=== PATIENT | female | born 1970 | race Caucasian/White ===

== ENCOUNTER 2016-04-01 08:48 | Inpatient (IN) | payer SELFPAY ==
[~2016-04-01] VITALS: Ht 172.7 cm; Wt 168.5 kg
[2016-04-01] MEDS ORDERED: ADENOSINE 6 MG/2 ML VIAL IV ONE ×2 (08:54→10:00)
[2016-04-01] MEDS ORDERED: DILTIAZEM IV PUSH 25 MG/5 ML VIAL. ONE (08:54)
[2016-04-01 09:15] LABS: BASO # 0.1 x10^3/uL (0.0-0.2); BASO % 1 % (0-3); EOS % 1 % (0-3); HEMOGLOBIN 15.8 g/dL (12.0-15.5); LYMPH # 4.1 x10^3/uL (1.0-4.8); LYMPH % 31 % (24-48); MEAN CORPUSCULAR HEMOGLOBIN 33 pg (25-35); MEAN CORPUSCULAR HGB CONC 33 g/dL (31-37); MEAN CORPUSCULAR VOLUME 99 fL (79-100); MONO % 7 % (0-9); NEUT % 60 % (31-73); PLATELET COUNT 207 x10^3/uL (140-400); RED BLOOD COUNT 4.87 x10^6/uL (3.50-5.40); RED CELL DISTRIBUTION WIDTH 13.5 % (11.5-14.5); WHITE BLOOD COUNT 13.1 x10^3/uL (4.0-11.0)
--- NOTE | 2016-04-01 09:15 | PHYS DOC ---
Past Medical History Past Medical History: Hypothyroid, Migraines Past Surgical History: Appendectomy, Alcohol Use: Occasionally Drug Use: None Adult General Chief Complaint Chief Complaint: Palpitations HPI HPI Patient is a 46 year old female who presents with palpitations and dizziness. She states around 7 AM this morning she started feeling lightheaded and her heart racing. She states she felt a little short of breath. She denies any nausea vomiting chest pain. She denies any history of SVT in the past. She denies any alcohol or drug abuse. Currently is on no medications. She did have one sweet tea drink this morning. She states she's never been worked up for any kind of coronary disease. She does have family history of her mom had a heart attack in her 50s. She denies any history of smoking. Review of Systems Review of Systems Constitutional: Denies fever or chills [] Eyes: Denies change in visual acuity, redness, or eye pain [] HENT: Denies nasal congestion or sore throat [] Respiratory: Denies cough or shortness of breath [] Cardiovascular: No additional information not addressed in HPI [] GI: Denies abdominal pain, nausea, vomiting, bloody stools or diarrhea [] : Denies dysuria or hematuria [] Musculoskeletal: Denies back pain or joint pain [] Integument: Denies rash or skin lesions [] Neurologic: Denies headache, focal weakness or sensory changes [] Endocrine: Denies polyuria or polydipsia [] Current Medications Current Medications Current Medications Medications (Trade) Dose Ordered Sig/Stormy Start Time Stop Time Status Last Admin Dose Admin Adenosine (Adenocard) 6 mg 1X ONCE 04/01/16 10:00 04/01/16 10:01 DC 04/01/16 09:01 6 MG Diltiazem HCl 25 mg 25 mg STK-MED ONCE 04/01/16 08:54 04/01/16 08:55 DC Sodium Chloride (Iv Sodium Chloride 0.9% 1000ml Bag) 1,000 ml @ 1,000 mls/hr Q1H 04/01/16 09:30 04/01/16 10:29 DC 04/01/16 09:00 1,000 MLS/HR Allergies Allergies Allergies Coded Allergies Type Severity Reaction Last Updated Verified No Known Drug Allergies 01/10/15 No Physical Exam Physical Exam Constitutional: Well developed, well nourished, no acute distress, non-toxic appearance. [] HENT: Normocephalic, atraumatic, bilateral external ears normal, oropharynx moist, no oral exudates, nose normal. [] Eyes: PERRLA, EOMI, conjunctiva normal, no discharge. [] Neck: Normal range of motion, no tenderness, supple, no stridor. [] Cardiovascular: Heart rate tach cardiac with regular rhythm, no murmurs appreciated [] Lungs & Thorax: Bilateral breath sounds clear to auscultation [] Abdomen: Bowel sounds normal, soft, no tenderness, no masses, no pulsatile masses. [] Skin: Warm, dry, no erythema, no rash. [] Back: No tenderness, no CVA tenderness. [] Extremities: No tenderness, no cyanosis, no clubbing, ROM intact, no edema. [] Neurologic: Alert and oriented X 3, normal motor function, normal sensory function, no focal deficits noted. [] Psychologic: Affect normal, judgement normal, mood normal. [] Current Patient Data Vital Signs Vital Signs Date Time Temp Pulse Resp B/P Pulse Ox O2 Delivery O2 Flow Rate FiO2 04/01/16 10:00 108 29 120/59 92 Nasal Cannula 2 04/01/16 08:50 98.7 98.7 Lab Values Laboratory Tests Test 04/01/16 08:50 04/01/16 09:43 White Blood Count 13.1x10^3/uL (4.0-11.0) H Red Blood Count 4.87x10^6/uL (3.50-5.40) Hemoglobin 15.8g/dL (12.0-15.5) H Hematocrit 48.0% (36.0-47.0) H Mean Corpuscular Volume 99fL (79-100) Mean Corpuscular Hemoglobin 33pg (25-35) Mean Corpuscular Hemoglobin Concent 33g/dL (31-37) Red Cell Distribution Width 13.5% (11.5-14.5) Platelet Count 207x10^3/uL (140-400) Neutrophils (%) (Auto) 60% (31-73) Lymphocytes (%) (Auto) 31% (24-48) Monocytes (%) (Auto) 7% (0-9) Eosinophils (%) (Auto) 1% (0-3) Basophils (%) (Auto) 1% (0-3) Neutrophils # (Auto) 7.9x10^3uL (1.8-7.7) H Lymphocytes # (Auto) 4.1x10^3/uL (1.0-4.8) Monocytes # (Auto) 0.9x10^3/uL (0.0-1.1) Eosinophils # (Auto) 0.2x10^3/uL (0.0-0.7) Basophils # (Auto) 0.1x10^3/uL (0.0-0.2) Prothrombin Time 12.6SEC (11.7-14.0) Prothrombin Time INR 1.0 (0.8-1.1) Magnesium Level 1.9mg/dL (1.8-2.4) Creatine Kinase 84U/L (26-192) Creatine Kinase MB (Mass) < 0.5ng/mL (0.0-3.6) Creatine Kinase MB Relative Index % (0-4) Troponin I Quantitative < 0.017ng/mL (0.000-0.055) YE-Tsx-L-Type Natriuretic Peptide 35pg/mL (0-124) Thyroid Stimulating Hormone (TSH) 113.955uIU/mL (0.358-3.74) H Sodium Level 136mmol/L (136-145) Potassium Level 4.0mmol/L (3.5-5.1) Chloride Level 103mmol/L (98-107) Carbon Dioxide Level 22mmol/L (21-32) Anion Gap 11 (6-14) Blood Urea Nitrogen 9mg/dL (7-20) Creatinine 1.0mg/dL (0.6-1.0) Estimated GFR (Cockcroft-Gault) 59.4 Glucose Level 338mg/dL (70-99) H Calcium Level 8.2mg/dL (8.5-10.1) L Total Bilirubin 0.4mg/dL (0.2-1.0) Direct Bilirubin 0.1mg/dL (0.0-0.2) Aspartate Amino Transferase (AST) 68U/L (15-37) H Alanine Aminotransferase (ALT) 71U/L (14-59) H Alkaline Phosphatase 72U/L (46-116) Total Protein 7.5g/dL (6.4-8.2) Albumin 3.2g/dL (3.4-5.0) L Laboratory Tests 04/01/16 08:50 Laboratory Tests 04/01/16 09:43 EKG EKG EKG shows SVT with a rate of 160, no ST elevations or T-wave inversions appreciated, normal axis, QTc 459 , as interpreted by me. Repeat EKG after adenosine given showed sinus tachycardia with a rate of 134, no ST elevations or T-wave inversions appreciated, normal axis, QTc 430 , as interpreted by me. Radiology/Procedures Radiology/Procedures [facility] [address] [place] [address] IMAGING REPORT Signed PATIENT: ERI NOLAN ACCOUNT: [id number] : 1970 LOCATION: [address] [place] [address] AGE: 46 SEX: F EXAM STATUS: ADM IN ORD. PHYSICIAN: HENRIQUE CLIFFORD MD REASON: soa ER1 PROCEDURE: PORTABLE CHEST 1V Indication: Tachycardia Technique: Upright portable chest radiograph was obtained. Image was repeated. Comparison is from March 21, 2011. Findings: The lungs are clear. The cardiopulmonary silhouette is within normal limits. The bony structures are intact. Leads overlie the patient. Impression: No active pulmonary disease. DICTATED and SIGNED BY: EARL ORTIZ MD DATE: 04/01/16 1227 CC: HENRIQUE CLIFFORD MD; NO PCP ~ Impressions: SVT Elevated TSH Obesity Course & Med Decision Making Course & Med Decision Making Pertinent Labs and Imaging studies reviewed. (See chart for details) 45 minutes critical care time was used on this patient excluding procedures. She presented with SVT and 6 mg of adenosine was given which brought her back into a sinus tachycardia. Cardiology's been consulted. We'll admit to the hospitalist. She is in stable condition at this time. She has have an elevated TSH of which she states hypothyroidism runs in her family. Spoke with regarding the patient and admission. Dragon Disclaimer Dragon Disclaimer This electronic medical record was generated, in whole or in part, using a voice recognition dictation system. Departure Departure Impression: Primary Impression: SVT (supraventricular tachycardia) Disposition: ADMITTED INPATIENT Admitting Physician: Luz Marina Kim Condition: STABLE Referrals: MARIA ISABEL MONTES MD (PCP) HENRIQUE CLIFFORD MD Apr 01, 2016 09:15
[2016-04-01 09:27] LABS: PROTHROMBIN TIME PATIENT 12.6 SEC (11.7-14.0)
[2016-04-01] MEDS ORDERED: IV NORMAL SALINE 1000ML BAG 1,000 ML IV SCH (09:30)
--- NOTE | 2016-04-01 09:34 | ACF ---
Admission Forms Criteria SUPRAVENTRICULAR ARRHYTHMIAS Clinical Indications for Admission to Inpatient Care (Place 'X' for any and all applicable criteria): Admission is indicated by ANY ONE of the following (1)(2): [X]I. Arrhythmia causing significant symptoms or findings as indicated by ANY ONE of the following: [ ]a) Chest pain [ ]b) Myocardial ischemia [ ]c) Altered mental status [X]d) Dizziness, weakness, or light-headedness [ ]e) Dyspnea or hypoxemia [ ]f) Heart failure (eg, pulmonary edema)(11) [ ]II. Initiation of antiarrhythmic drug therapy is needed in patient at high risk of adverse events as indicated by ANY ONE of the following: [ ]a) Significant structural heart disease (eg, aortic stenosis, reduced ejection fraction, cardiomyopathy, congenital heart disease) [ ]b) Underlying sinus node or atrioventricular conduction disturbances [ ]c) Prolonged QT interval [ ]d) Need for treatment with antiarrhythmic that have significant proarrhythmic potential ( procainamide) [ ]e) Patient whose sinus rhythm has not been observed on ECG [ ]III. Inpatient admission required rather than observation care because of ANY ONE of the following: [ ]a) Syncope [ ]b) Patient has automatic implanted cardioverter-defibrillator that is repeatedly firing, malfunctioning, or in need of immediate adjustment of settings beyond scope of ambulatory or observation care. [ ]c) Hemodynamic instability that is severe or persistent [ ]d) Unstable cardiac conduction defects indicated by ANY ONE of the following(19)(20)(21): [ ]a) Type II second-degree atrioventricular block [ ]b) Third-degree atrioventricular block [ ]C) New-onset left bundle branch block with suspected myocardial ischemia [ ]e) Severe electrolyte abnormalities requiring inpatient care [ ]f) Continuous intravenous infusion of anticoagulation, platelet inhibitor, vasoactive, or antiarrhythmic medication(14) [ ]g) Pulmonary artery catheter monitoring [ ]h) Repeat cardioversion necessary [ ]i) Other condition, treatment or monitoring requiring inpatient admission [ ]IV. Underlying medical condition that necessitates inpatient care (eg, thyrotoxicosis, severe acidosis) Extended stay beyond goal length of stay may be needed for(1)(17)(18): [ ]a) Persistent hemodynamic instability or continued severe arrhythmia [ ]b) Continued monitoring during initiation of certain medications (eg, some antiarrhythmics)(17)(19) [ ]c) Precipitating cause requires ongoing inpatient care (eg, severe electrolyte abnormality, systemic infection, acidosis) [ ]d) Unstable comorbidities The original [facility] content created by [facility] has been revised. The portions of the content which have been revised are identified through the use of italic text or in bold, and [facility] has neither reviewed nor approved the modified material. All other unmodified content is copyright [facility]. Please see references footnoted in the original [facility] edition 2016 Admission Criteria Met?: Yes CHIQUIS CRAFT Apr 01, 2016 09:34
[2016-04-01 09:47] LABS: CKMB MASS < 0.5 ng/mL (0.0-3.6); CREATINE KINASE 84 U/L (26-192)
[2016-04-01 09:54] LABS: CALCIUM 8.2 mg/dL (8.5-10.1); GFR 59.4
[2016-04-01 09:59] LABS: ALBUMIN 3.2 g/dL (3.4-5.0); DIRECT BILIRUBIN 0.1 mg/dL (0.0-0.2); TOTAL BILIRUBIN 0.4 mg/dL (0.2-1.0); TOTAL PROTEIN 7.5 g/dL (6.4-8.2)
--- NOTE | 2016-04-01 11:16 | EKG ---
[facility] [address] [place] [address] Test Date: 2016-04-01 Test Time: 08:58:37 Pat Name: ERI NOLAN Department: Room: Gender: F Dog [employer]: : 1970 Requested By: HENRIQUE CLIFFORD Order Number: [id number] Reading MD: Measurements Intervals [place] Rate: 134 P: 2 SD: 144 QRS: 33 QRSD: 78 T: 64 QT: 288 QTc: 430 Interpretive Statements SINUS TACHYCARDIA LOW LIMB LEAD VOLTAGE QRS(T) CONTOUR ABNORMALITY CONSISTENT WITH ANTEROSEPTAL INFARCT PROBABLY OLD RI6.01 Unconfirmed report No previous ECG available for comparison
[2016-04-01 11:25] VITALS: BP 112/80
--- NOTE | 2016-04-01 12:32 | RAD ---
Indication: Tachycardia Technique: Upright portable chest radiograph was obtained. Image was repeated. Comparison is from March 21, 2011. Findings: The lungs are clear. The cardiopulmonary silhouette is within normal limits. The bony structures are intact. Leads overlie the patient. Impression: No active pulmonary disease.
--- NOTE | 2016-04-01 12:54 | PDOC2 ---
CARDIAC CONSULT DATE OF CONSULT Date of Consult DATE: 04/01/16 TIME: 12:41 REASON FOR CONSULT Reason for Consult: SVT REFERRING PHYSICIAN Referring Physician: Dr. Mehta SOURCE Source: Chart review, Patient HISTORY OF PRESENT ILLNESS HISTORY OF PRESENT ILLNESS This is a 46 yo female who presented with complaints of rapid heart rate. Patient reports she woke this morning feeling well and went to work as usual. While at work, felt like heart was "racing." Works as a nurse at [employer]. Patient checked her heart rate and was noted in 160's. Reports palpitations worsened and started feeling dizzy "foggy" and became diaphoretic. Check HR again and was in the 170's so she came for further evaluation. Took ASA prior to arrival. In ED, was noted to be in SVT. Was converted with adenosine x1. No prior hx of cardiac disease. PAST MEDICAL HISTORY Cardiovascular: No pertinent hx Pulmonary: No pertinent hx CENTRAL NERVOUS SYSTEM: Other (benign essential tremor) GI: No pertinent hx Heme/Onc: No pertinent hx Hepatobiliary: No pertinent hx Psych: No pertinent hx Rheumatologic: No pertinent hx Infectious disease: No pertinent hx ENT: No pertinent hx Renal/: No pertinent hx Endocrine: Other (obesity ) Dermatology: No pertinent hx PAST SURGICAL HISTORY Past Surgical History: No pertinent history FAMILY HISTORY Family History: Heart Disease, Hypertension SOCIAL HISTORY Smoke: No ALCOHOL: none Drugs: None Lives: with Family CURRENT MEDICATIONS CURRENT MEDICATIONS Current Medications Medications (Trade) Dose Ordered Sig/Stormy Route PRN Reason Start Time Stop Time Status Last Admin Dose Admin Sodium Chloride (Iv Sodium Chloride 0.9% 1000ml Bag) 1,000 ml @ 1,000 mls/hr Q1H IV 04/01/16 09:30 04/01/16 10:29 DC 04/01/16 09:00 Adenosine (Adenocard) 6 mg 1X ONCE IV 04/01/16 10:00 04/01/16 10:01 DC 04/01/16 09:01 ALLERGIES ALLERGIES: Coded Allergies: No Known Drug Allergies (Unverified , 01/10/15) ROS Review of System 14 point ROS conducted with pertinent positives noted above in HPI. PHYSICAL EXAM General: Alert, Oriented X3, Cooperative, No acute distress HEENT: Atraumatic, Mucous membr. moist/pink Lungs: Clear to auscultation, Normal air movement Heart: Regular rate, Normal S1, Normal S2, No murmurs Abdomen: Soft, No tenderness, Other (obese ) Extremities: No edema, Normal pulses Skin: No breakdown, No significant lesion Neuro: Normal speech, Strength at 5/5 X4 ext, Sensation intact Psych/Mental Status: Mental status NL, Mood NL MUSCULOSKELETAL: Full range of motion without pain VITALS VITALS Vital Signs Date Time Temp Pulse Resp B/P Pulse Ox O2 Delivery O2 Flow Rate FiO2 04/01/16 11:25 97.6 97 18 112/80 95 Room Air 97.6 04/01/16 11:00 2 LABS Lab: Laboratory Tests Test 04/01/16 08:50 04/01/16 09:43 04/01/16 12:05 White Blood Count 13.1x10^3/uL (4.0-11.0) Red Blood Count 4.87x10^6/uL (3.50-5.40) Hemoglobin 15.8g/dL (12.0-15.5) Hematocrit 48.0% (36.0-47.0) Mean Corpuscular Volume 99fL (79-100) Mean Corpuscular Hemoglobin 33pg (25-35) Mean Corpuscular Hemoglobin Concent 33g/dL (31-37) Red Cell Distribution Width 13.5% (11.5-14.5) Platelet Count 207x10^3/uL (140-400) Neutrophils (%) (Auto) 60% (31-73) Lymphocytes (%) (Auto) 31% (24-48) Monocytes (%) (Auto) 7% (0-9) Eosinophils (%) (Auto) 1% (0-3) Basophils (%) (Auto) 1% (0-3) Neutrophils # (Auto) 7.9x10^3uL (1.8-7.7) Lymphocytes # (Auto) 4.1x10^3/uL (1.0-4.8) Monocytes # (Auto) 0.9x10^3/uL (0.0-1.1) Eosinophils # (Auto) 0.2x10^3/uL (0.0-0.7) Basophils # (Auto) 0.1x10^3/uL (0.0-0.2) Prothrombin Time 12.6SEC (11.7-14.0) Prothromb Time International Ratio 1.0 (0.8-1.1) Magnesium Level 1.9mg/dL (1.8-2.4) Creatine Kinase 84U/L (26-192) Creatine Kinase MB (Mass) < 0.5ng/mL (0.0-3.6) Creatine Kinase MB Relative Index % (0-4) Troponin I Quantitative < 0.017ng/mL (0.000-0.055) RA-Bts-S-Type Natriuretic Peptide 35pg/mL (0-124) Thyroid Stimulating Hormone (TSH) 113.955uIU/mL (0.358-3.74) Sodium Level 136mmol/L (136-145) Potassium Level 4.0mmol/L (3.5-5.1) Chloride Level 103mmol/L (98-107) Carbon Dioxide Level 22mmol/L (21-32) Anion Gap 11 (6-14) Blood Urea Nitrogen 9mg/dL (7-20) Creatinine 1.0mg/dL (0.6-1.0) Estimated GFR (Cockcroft-Gault) 59.4 Glucose Level 338mg/dL (70-99) Calcium Level 8.2mg/dL (8.5-10.1) Total Bilirubin 0.4mg/dL (0.2-1.0) Direct Bilirubin 0.1mg/dL (0.0-0.2) Aspartate Amino Transf (AST/SGOT) 68U/L (15-37) Alanine Aminotransferase (ALT/SGPT) 71U/L (14-59) Alkaline Phosphatase 72U/L (46-116) Total Protein 7.5g/dL (6.4-8.2) Albumin 3.2g/dL (3.4-5.0) Glucose (Fingerstick) 238mg/dL (70-99) ASSESSMENT/PLAN ASSESSMENT/PLAN 1. SVT converted in ED with adenosine maintaining SR check echo to assess LV function/presence of cardiac anomalies. tx underlying thyroid dx if paroxysmal episodes occur once thyroid has been replaced, will start BB for rate control If echo WNL, may dicharge and f/u in our office with Dr. Rushing in 2 weeks 2. Hypothyroidism TSH 113 likely contributor to SVT replacement per PCP 3. Morbid obesity encouraged lifestyle modification 4. Undiagnosed Diabetes glucose 338 upon admit per PCP Problems: IVELISSE LOMBARDI APRN Apr 01, 2016 12:54
[2016-04-01] MEDS ORDERED: ONDANSETRON PF 4 MG/2 ML VIAL. IV PRN (13:00)
[2016-04-01] MEDS ORDERED: DEXTROSE 50% 25 GM / 50ML DISP.SYRIN. IV PRN (13:00)
[2016-04-01] MEDS ORDERED: ACETAMINOPHEN 325 MG TABLET. PO PRN (13:00)
--- NOTE | 2016-04-01 13:43 | PDOC1 ---
History and Physical Date of Admission Date of Admission 04/01/16 Identification/Chief Complaint Chief Complaint tachycardia Problems: Source Source: Chart review, Patient History of Present Illness History of Present Illness HPI HPI Patient is a 46 year old female who presents with palpitations and dizziness. no PMH, refused to see dr. Quick now. 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 She denies any alcohol or drug abuse. Currently is on no medications. She did have one sweet tea drink this morning. She states she's never been worked up for any kind of coronary disease. She does have family history of her mom had a heart attack in her 50s. She denies any history of smoking. father has hypothyroidism. TSH was found 113 in ER. She has dry skin, but denies constipation, feeling cold. Does have irregular menstrual period. as per ERP, pt was found SVT, EKG here showed sinus tachycardia at 130s. Past Medical History Cardiovascular: No pertinent hx Pulmonary: No pertinent hx CENTRAL NERVOUS SYSTEM: Other (benign essential tremor) GI: No pertinent hx Heme/Onc: No pertinent hx Hepatobiliary: No pertinent hx Psych: No pertinent hx Rheumatologic: No pertinent hx Infectious disease: No pertinent hx ENT: No pertinent hx Renal/: No pertinent hx Endocrine: Other (obesity ) Dermatology: No pertinent hx Past Surgical History Past Surgical History: Appendectomy, Family History Family History hypothyroidism Family History: Heart Disease, Hypertension Social History Smoke: No ALCOHOL: social Drugs: None Current Problem List Problem List Problems Medical Problems: (1) SVT (supraventricular tachycardia) Status: Acute Current Medications Current Medications Current Medications Medications (Trade) Dose Ordered Sig/Stormy Start Time Stop Time Status Last Admin Dose Admin Acetaminophen (Tylenol) 650 mg PRN Q6HRS PRN 04/01/16 13:00 Adenosine (Adenocard) 6 mg 1X ONCE 04/01/16 10:00 04/01/16 10:01 DC 04/01/16 09:01 6 MG Dextrose 12.5 gm PRN Q15MIN PRN 04/01/16 13:00 Diltiazem HCl 25 mg 25 mg STK-MED ONCE 04/01/16 08:54 04/01/16 08:55 DC Enoxaparin Sodium (Lovenox 60mg Syringe) 60 mg Q12HR 04/01/16 14:00 Insulin Aspart (Novolog) 0-9 UNITS TIDWMEALS 04/01/16 17:00 Ondansetron HCl (Zofran) 4 mg PRN Q6HRS PRN 04/01/16 13:00 Sodium Chloride (Iv Sodium Chloride 0.9% 1000ml Bag) 1,000 ml @ 1,000 mls/hr Q1H 04/01/16 09:30 04/01/16 10:29 DC 04/01/16 09:00 1,000 MLS/HR Allergies Allergies Allergies Coded Allergies Type Severity Reaction Last Updated Verified No Known Drug Allergies 01/10/15 No ROS Review of System CONSTITUTIONAL: No fever or chills EYES: No recent changes SKIN: No rash or itching CARDIOVASCULAR: No chest pain, syncope, palpitations, or edema RESPIRATORY: No SOB or cough GASTROINTESTINAL: No nausea, vomiting or abdominal pain NEUROLOGICAL: No headaches or weakness ENDOCRINE: No cold or heat intolerance GENITOURINARY: No urgency or frequency of urination MUSCULOSKELETAL: No back pain or joint pain LYMPHATICS: No enlarged lymph nodes PSYCHIATRIC: No anxiety or depression Physical Exam Physical Exam GEN.: No apparent distress. Alert and oriented. HEENT: Head is normocephalic, atraumatic NECK: Supple. LUNGS: Clear to auscultation. HEART: RRR, S1, S2 present. Peripheral pulses intact. tachycardia. ABDOMEN: Soft, nontender. Positive bowel sounds. EXTREMITIES: Without any cyanosis. NEUROLOGIC: Normal speech, normal tone PSYCHIATRIC: Normal affect, normal mood. SKIN: No ulcerations Vitals Vitals Vital Signs Date Time Temp Pulse Resp B/P Pulse Ox O2 Delivery O2 Flow Rate FiO2 04/01/16 11:30 Room Air 04/01/16 11:25 97.6 97 18 112/80 95 97.6 04/01/16 11:00 2 Labs Labs Laboratory Tests Test 04/01/16 08:50 04/01/16 09:43 04/01/16 12:05 White Blood Count 13.1x10^3/uL (4.0-11.0) Red Blood Count 4.87x10^6/uL (3.50-5.40) Hemoglobin 15.8g/dL (12.0-15.5) Hematocrit 48.0% (36.0-47.0) Mean Corpuscular Volume 99fL (79-100) Mean Corpuscular Hemoglobin 33pg (25-35) Mean Corpuscular Hemoglobin Concent 33g/dL (31-37) Red Cell Distribution Width 13.5% (11.5-14.5) Platelet Count 207x10^3/uL (140-400) Neutrophils (%) (Auto) 60% (31-73) Lymphocytes (%) (Auto) 31% (24-48) Monocytes (%) (Auto) 7% (0-9) Eosinophils (%) (Auto) 1% (0-3) Basophils (%) (Auto) 1% (0-3) Neutrophils # (Auto) 7.9x10^3uL (1.8-7.7) Lymphocytes # (Auto) 4.1x10^3/uL (1.0-4.8) Monocytes # (Auto) 0.9x10^3/uL (0.0-1.1) Eosinophils # (Auto) 0.2x10^3/uL (0.0-0.7) Basophils # (Auto) 0.1x10^3/uL (0.0-0.2) Prothrombin Time 12.6SEC (11.7-14.0) Prothromb Time International Ratio 1.0 (0.8-1.1) Magnesium Level 1.9mg/dL (1.8-2.4) Creatine Kinase 84U/L (26-192) Creatine Kinase MB (Mass) < 0.5ng/mL (0.0-3.6) Creatine Kinase MB Relative Index % (0-4) Troponin I Quantitative < 0.017ng/mL (0.000-0.055) ZS-Wiv-G-Type Natriuretic Peptide 35pg/mL (0-124) Thyroid Stimulating Hormone (TSH) 113.955uIU/mL (0.358-3.74) Sodium Level 136mmol/L (136-145) Potassium Level 4.0mmol/L (3.5-5.1) Chloride Level 103mmol/L (98-107) Carbon Dioxide Level 22mmol/L (21-32) Anion Gap 11 (6-14) Blood Urea Nitrogen 9mg/dL (7-20) Creatinine 1.0mg/dL (0.6-1.0) Estimated GFR (Cockcroft-Gault) 59.4 Glucose Level 338mg/dL (70-99) Calcium Level 8.2mg/dL (8.5-10.1) Total Bilirubin 0.4mg/dL (0.2-1.0) Direct Bilirubin 0.1mg/dL (0.0-0.2) Aspartate Amino Transf (AST/SGOT) 68U/L (15-37) Alanine Aminotransferase (ALT/SGPT) 71U/L (14-59) Alkaline Phosphatase 72U/L (46-116) Total Protein 7.5g/dL (6.4-8.2) Albumin 3.2g/dL (3.4-5.0) Glucose (Fingerstick) 238mg/dL (70-99) Laboratory Tests Test 04/01/16 08:50 04/01/16 09:43 04/01/16 12:05 White Blood Count 13.1x10^3/uL (4.0-11.0) Red Blood Count 4.87x10^6/uL (3.50-5.40) Hemoglobin 15.8g/dL (12.0-15.5) Hematocrit 48.0% (36.0-47.0) Mean Corpuscular Volume 99fL (79-100) Mean Corpuscular Hemoglobin 33pg (25-35) Mean Corpuscular Hemoglobin Concent 33g/dL (31-37) Red Cell Distribution Width 13.5% (11.5-14.5) Platelet Count 207x10^3/uL (140-400) Neutrophils (%) (Auto) 60% (31-73) Lymphocytes (%) (Auto) 31% (24-48) Monocytes (%) (Auto) 7% (0-9) Eosinophils (%) (Auto) 1% (0-3) Basophils (%) (Auto) 1% (0-3) Neutrophils # (Auto) 7.9x10^3uL (1.8-7.7) Lymphocytes # (Auto) 4.1x10^3/uL (1.0-4.8) Monocytes # (Auto) 0.9x10^3/uL (0.0-1.1) Eosinophils # (Auto) 0.2x10^3/uL (0.0-0.7) Basophils # (Auto) 0.1x10^3/uL (0.0-0.2) Prothrombin Time 12.6SEC (11.7-14.0) Prothromb Time International Ratio 1.0 (0.8-1.1) Magnesium Level 1.9mg/dL (1.8-2.4) Creatine Kinase 84U/L (26-192) Creatine Kinase MB (Mass) < 0.5ng/mL (0.0-3.6) Creatine Kinase MB Relative Index % (0-4) Troponin I Quantitative < 0.017ng/mL (0.000-0.055) IS-Ppv-C-Type Natriuretic Peptide 35pg/mL (0-124) Thyroid Stimulating Hormone (TSH) 113.955uIU/mL (0.358-3.74) Sodium Level 136mmol/L (136-145) Potassium Level 4.0mmol/L (3.5-5.1) Chloride Level 103mmol/L (98-107) Carbon Dioxide Level 22mmol/L (21-32) Anion Gap 11 (6-14) Blood Urea Nitrogen 9mg/dL (7-20) Creatinine 1.0mg/dL (0.6-1.0) Estimated GFR (Cockcroft-Gault) 59.4 Glucose Level 338mg/dL (70-99) Calcium Level 8.2mg/dL (8.5-10.1) Total Bilirubin 0.4mg/dL (0.2-1.0) Direct Bilirubin 0.1mg/dL (0.0-0.2) Aspartate Amino Transf (AST/SGOT) 68U/L (15-37) Alanine Aminotransferase (ALT/SGPT) 71U/L (14-59) Alkaline Phosphatase 72U/L (46-116) Total Protein 7.5g/dL (6.4-8.2) Albumin 3.2g/dL (3.4-5.0) Glucose (Fingerstick) 238mg/dL (70-99) VTE Prophylaxis Ordered VTE Prophylaxis Devices: Yes VTE Pharmacological Prophylaxi: Yes Assessment/Plan Assessment/Plan 1. SVT converted to sinus tachycardia post adenosine 2. hypothyroidism 3. morbid obesity with BMI 54 4. h/o migraines 5. hyperglycemia, likely DM2 plan: 1. card consult 2. echo 3. beta ashley 4. add synthroid, pt is morbid obese, the initial synthroid dose would be very high, double checked with pharm, would start with 200mcg for now check hba1c, lipid panel. ssi dvt ppx check t4 DESTIN ASKEW MD Apr 01, 2016 13:43
[2016-04-01] MEDS: ENOXAPARIN ** NOTE DOSE ** SYRINGE SQ SCH ×2 (14:00→21:00)
[2016-04-01 15:00] VITALS: BP 116/73
[2016-04-01] MEDS: METOPROLOL TART IMMED RELEASE 25 MG TABLET PO SCH ×2 (15:33→21:45)
[2016-04-01] MEDS: LEVOTHYROXINE 100 MCG TABLET PO SCH (15:35)
--- NOTE | 2016-04-01 16:50 | CARD ---
APPROVED REPORT EXAM: Two-dimensional and M-mode echocardiogram with Doppler and color Doppler. Other Information Quality : Average Rhythm : NSR INDICATION Arrhythmia SVT 2D DIMENSIONS RVDd2.4 (2.9-3.5cm)Left Atrium(2D)4.1 (1.6-4.0cm) IVSd0.8 (0.7-1.1cm)Aortic Root(2D)2.9 (2.0-3.7cm) LVDd5.3 (3.9-5.9cm)LVOT Diameter2.2 (1.8-2.4cm) PWd0.8 (0.7-1.1cm)LVDs3.1 (2.5-4.0cm) FS (%) 32.8 %SV101.3 ml LVEF(%)63.5 (>50%) Aortic Valve AoV Peak Jorge.116.5cm/sAoV VTI19.0cm AO Peak GR.5.4mmHgLVOT Peak Jorge.94.1cm/s LVOT VTI 16.44cmAO Mean GR.3mmHg CARLINE (VMAX)2.26my0UCU (VTI)3.14cm2 Mitral Valve MV E Ahygvkzi12.0cm/sMV DECEL [id number] MV A Dgquoptd56.5cm/sMV E Mean Gr.1mmHg MV NVZ80kcF/A Ratio1.0 MV A Jfubfwwb06ckVAG (PHT)3.50cm2 TDI E/Lateral E'9.3E/Medial E'10.3 Pulmonary Valve PV Peak Lyimttao682.4cm/sPV Peak Grad.4mmHg RVOT VTI15.7cm Tricuspid Valve TR P. Jestwaze671be/sRAP LZHAROVA9dmIo TR Peak Gr.78huCiAFPP60vpHo LEFT VENTRICLE The left ventricle is normal size. There is normal left ventricular wall thickness. Left ventricle sy stolic function is normal. The Ejection Fraction is 60-65%. There is normal LV segmental wall motion. The left ventricular diastolic function and filling is normal for age. RIGHT VENTRICLE The right ventricle is normal size. The right ventricular systolic function is normal. ATRIA The left atrium size is normal. The right atrium size is normal. The interatrial septum is intact wit h no evidence for an atrial septal defect or patent foramen ovale as noted on 2-D or Doppler imaging. AORTIC VALVE The aortic valve is not well visualized. Doppler and Color Flow revealed no significant aortic regurg itation. There is no significant aortic valvular stenosis. MITRAL VALVE The mitral valve is normal in structure and function. There is no mitral valve stenosis. Doppler and Color Flow revealed no mitral valve regurgitation noted. TRICUSPID VALVE The tricuspid valve is normal in structure and function. Doppler and Color Flow revealed trace to mil d tricuspid regurgitation. The PA pressure was estimated at 27 mmHg. There is no tricuspid valve sten osis. PULMONIC VALVE The pulmonic valve is not well visualized. Doppler and Color Flow revealed no pulmonic valvular regur gitation. There is no pulmonic valvular stenosis. GREAT VESSELS The aortic root is normal in size. The IVC is normal in size and collapses >50% with inspiration. PERICARDIAL EFFUSION There is no evidence of significant pericardial effusion. Critical Notification Critical Value: No <Conclusion> Left ventricle systolic function is normal. The Ejection Fraction is 60-65%. There is normal LV segmental wall motion. Trace to mild tricuspid regurgitation. The PA pressure was estimated at 27 mmHg. There is no evidence of significant pericardial effusion.
[2016-04-01] MEDS: INSULIN ASPART 300 UNITS/3 ML INSULN.PEN SQ SCH (17:47)
[2016-04-01 19:47] VITALS: BP 98/58
[2016-04-01 21:45] VITALS: BP 119/64
[2016-04-01 23:11] VITALS: BP 85/51
[2016-04-02 03:13] VITALS: BP 97/70
[2016-04-02 05:58] LABS: BASO # 0.1 x10^3/uL (0.0-0.2); BASO % 1 % (0-3); EOS % 2 % (0-3); HEMATOCRIT 42.9 % (36.0-47.0); HEMOGLOBIN 14.3 g/dL (12.0-15.5); LYMPH # 2.6 x10^3/uL (1.0-4.8); LYMPH % 28 % (24-48); MEAN CORPUSCULAR HEMOGLOBIN 32 pg (25-35); MEAN CORPUSCULAR HGB CONC 33 g/dL (31-37); MEAN CORPUSCULAR VOLUME 97 fL (79-100); MONO % 7 % (0-9); NEUT % 63 % (31-73); PLATELET COUNT 163 x10^3/uL (140-400); RED BLOOD COUNT 4.42 x10^6/uL (3.50-5.40); RED CELL DISTRIBUTION WIDTH 13.9 % (11.5-14.5); WHITE BLOOD COUNT 9.2 x10^3/uL (4.0-11.0)
[2016-04-02 06:30] LABS: CHOLESTEROL/HDL RATIO 11.5
[2016-04-02 06:33] LABS: CALCIUM 8.6 mg/dL (8.5-10.1); CREATININE 0.8 mg/dL (0.6-1.0); GFR 76.9; POTASSIUM 3.9 mmol/L (3.5-5.1)
[2016-04-02 07:00] VITALS: BP 126/78
[2016-04-02] MEDS: ENOXAPARIN ** NOTE DOSE ** SYRINGE SQ SCH (09:00)
[2016-04-02] MEDS: INSULIN ASPART 300 UNITS/3 ML INSULN.PEN SQ SCH ×2 (09:00→12:47)
[2016-04-02] MEDS ORDERED: METOPROLOL TART IMMED RELEASE 25 MG TABLET PO SCH (09:00)
[2016-04-02] MEDS: LEVOTHYROXINE 100 MCG TABLET PO SCH (09:05)
[2016-04-02] MEDS ORDERED: BENZOCAINE/MENTHOL LOZENGE. PO PRN (10:00)
--- NOTE | 2016-04-02 10:03 | PDOC ---
PROGRESS NOTES Chief Complaint Chief Complaint 1. SVT converted to sinus tachycardia post adenosine 2. hypothyroidism 3. morbid obesity with BMI 54 4. h/o migraines 5. hyperglycemia, likely DM2 6. Tonsillopharyngitis History of Present Illness History of Present Illness Sore throat Odynophagia Throat inspected - red but no abscess SOunds nasal SOme tender cervical LN NO fevers, no cough HR remains on high side on ambulation BB started yesterday caused hypotension per pt account so dose adjusted by cards TSH > 100 - NEW Started on synthroid Educated, advised rpt TSH and T3, T4 in 6 - 8 weeks PLAN: COnt PO synthroid on empty stomach, 30 mins before breakfast Rpt levels in 6-8 weeks Start PO augmentin RAte control per cards Cepastat prn Keep on tele Dw pt Vitals Vitals Vital Signs Date Time Temp Pulse Resp B/P Pulse Ox O2 Delivery O2 Flow Rate FiO2 04/02/16 09:04 94 126/78 04/02/16 07:00 97.5 17 93 Room Air 97.5 04/01/16 11:00 2 Physical Exam General: Alert, Oriented X3, Cooperative, No acute distress Heart: Regular rate, Normal S1, Normal S2, No murmurs Abdomen: Soft, No tenderness, Other (obese ) Extremities: No edema, Normal pulses Skin: No breakdown, No significant lesion Labs LABS Laboratory Tests Test 04/01/16 12:05 04/01/16 16:08 04/01/16 17:31 04/01/16 20:36 Glucose (Fingerstick) 238mg/dL (70-99) 191mg/dL (70-99) 236mg/dL (70-99) Troponin I Quantitative < 0.017ng/mL (0.000-0.055) Test 04/01/16 22:45 04/02/16 05:00 Troponin I Quantitative < 0.017ng/mL (0.000-0.055) White Blood Count 9.2x10^3/uL (4.0-11.0) Red Blood Count 4.42x10^6/uL (3.50-5.40) Hemoglobin 14.3g/dL (12.0-15.5) Hematocrit 42.9% (36.0-47.0) Mean Corpuscular Volume 97fL (79-100) Mean Corpuscular Hemoglobin 32pg (25-35) Mean Corpuscular Hemoglobin Concent 33g/dL (31-37) Red Cell Distribution Width 13.9% (11.5-14.5) Platelet Count 163x10^3/uL (140-400) Neutrophils (%) (Auto) 63% (31-73) Lymphocytes (%) (Auto) 28% (24-48) Monocytes (%) (Auto) 7% (0-9) Eosinophils (%) (Auto) 2% (0-3) Basophils (%) (Auto) 1% (0-3) Neutrophils # (Auto) 5.7x10^3uL (1.8-7.7) Lymphocytes # (Auto) 2.6x10^3/uL (1.0-4.8) Monocytes # (Auto) 0.6x10^3/uL (0.0-1.1) Eosinophils # (Auto) 0.2x10^3/uL (0.0-0.7) Basophils # (Auto) 0.1x10^3/uL (0.0-0.2) Sodium Level 138mmol/L (136-145) Potassium Level 3.9mmol/L (3.5-5.1) Chloride Level 102mmol/L (98-107) Carbon Dioxide Level 26mmol/L (21-32) Anion Gap 10 (6-14) Blood Urea Nitrogen 9mg/dL (7-20) Creatinine 0.8mg/dL (0.6-1.0) Estimated GFR (Cockcroft-Gault) 76.9 Glucose Level 234mg/dL (70-99) Calcium Level 8.6mg/dL (8.5-10.1) Triglycerides Level 453mg/dL (0-150) Cholesterol Level 344mg/dL (0-200) LDL Cholesterol, Calculated 223mg/dL (0-100) VLDL Cholesterol, Calculated 91mg/dL (0-40) HDL Cholesterol 30mg/dL (40-60) Cholesterol/HDL Ratio 11.5 Review of Systems Review of Systems possible weight gain? no abd pain, maybe constipation, no hair changes, no skin changes Assessment and Plan Assessmemt and Plan Problems Medical Problems: (1) SVT (supraventricular tachycardia) Status: Acute Problems: Comment Review of Relevant I have reviewed the following items tiny (where applicable) has been applied. Labs Laboratory Tests Test 04/01/16 08:50 04/01/16 09:43 04/01/16 12:05 04/01/16 16:08 White Blood Count 13.1x10^3/uL (4.0-11.0) Red Blood Count 4.87x10^6/uL (3.50-5.40) Hemoglobin 15.8g/dL (12.0-15.5) Hematocrit 48.0% (36.0-47.0) Mean Corpuscular Volume 99fL (79-100) Mean Corpuscular Hemoglobin 33pg (25-35) Mean Corpuscular Hemoglobin Concent 33g/dL (31-37) Red Cell Distribution Width 13.5% (11.5-14.5) Platelet Count 207x10^3/uL (140-400) Neutrophils (%) (Auto) 60% (31-73) Lymphocytes (%) (Auto) 31% (24-48) Monocytes (%) (Auto) 7% (0-9) Eosinophils (%) (Auto) 1% (0-3) Basophils (%) (Auto) 1% (0-3) Neutrophils # (Auto) 7.9x10^3uL (1.8-7.7) Lymphocytes # (Auto) 4.1x10^3/uL (1.0-4.8) Monocytes # (Auto) 0.9x10^3/uL (0.0-1.1) Eosinophils # (Auto) 0.2x10^3/uL (0.0-0.7) Basophils # (Auto) 0.1x10^3/uL (0.0-0.2) Prothrombin Time 12.6SEC (11.7-14.0) Prothromb Time International Ratio 1.0 (0.8-1.1) Hemoglobin A1c 8.5% (4.8-5.6) Magnesium Level 1.9mg/dL (1.8-2.4) Creatine Kinase 84U/L (26-192) Creatine Kinase MB (Mass) < 0.5ng/mL (0.0-3.6) Creatine Kinase MB Relative Index % (0-4) Troponin I Quantitative < 0.017ng/mL (0.000-0.055) < 0.017ng/mL (0.000-0.055) KC-Kas-P-Type Natriuretic Peptide 35pg/mL (0-124) Thyroid Stimulating Hormone (TSH) 113.955uIU/mL (0.358-3.74) Free Thyroxine 0.48ng/dL (0.76-1.46) Sodium Level 136mmol/L (136-145) Potassium Level 4.0mmol/L (3.5-5.1) Chloride Level 103mmol/L (98-107) Carbon Dioxide Level 22mmol/L (21-32) Anion Gap 11 (6-14) Blood Urea Nitrogen 9mg/dL (7-20) Creatinine 1.0mg/dL (0.6-1.0) Estimated GFR (Cockcroft-Gault) 59.4 Glucose Level 338mg/dL (70-99) Calcium Level 8.2mg/dL (8.5-10.1) Total Bilirubin 0.4mg/dL (0.2-1.0) Direct Bilirubin 0.1mg/dL (0.0-0.2) Aspartate Amino Transf (AST/SGOT) 68U/L (15-37) Alanine Aminotransferase (ALT/SGPT) 71U/L (14-59) Alkaline Phosphatase 72U/L (46-116) Total Protein 7.5g/dL (6.4-8.2) Albumin 3.2g/dL (3.4-5.0) Glucose (Fingerstick) 238mg/dL (70-99) Test 04/01/16 17:31 04/01/16 20:36 04/01/16 22:45 04/02/16 05:00 Glucose (Fingerstick) 191mg/dL (70-99) 236mg/dL (70-99) Troponin I Quantitative < 0.017ng/mL (0.000-0.055) White Blood Count 9.2x10^3/uL (4.0-11.0) Red Blood Count 4.42x10^6/uL (3.50-5.40) Hemoglobin 14.3g/dL (12.0-15.5) Hematocrit 42.9% (36.0-47.0) Mean Corpuscular Volume 97fL (79-100) Mean Corpuscular Hemoglobin 32pg (25-35) Mean Corpuscular Hemoglobin Concent 33g/dL (31-37) Red Cell Distribution Width 13.9% (11.5-14.5) Platelet Count 163x10^3/uL (140-400) Neutrophils (%) (Auto) 63% (31-73) Lymphocytes (%) (Auto) 28% (24-48) Monocytes (%) (Auto) 7% (0-9) Eosinophils (%) (Auto) 2% (0-3) Basophils (%) (Auto) 1% (0-3) Neutrophils # (Auto) 5.7x10^3uL (1.8-7.7) Lymphocytes # (Auto) 2.6x10^3/uL (1.0-4.8) Monocytes # (Auto) 0.6x10^3/uL (0.0-1.1) Eosinophils # (Auto) 0.2x10^3/uL (0.0-0.7) Basophils # (Auto) 0.1x10^3/uL (0.0-0.2) Sodium Level 138mmol/L (136-145) Potassium Level 3.9mmol/L (3.5-5.1) Chloride Level 102mmol/L (98-107) Carbon Dioxide Level 26mmol/L (21-32) Anion Gap 10 (6-14) Blood Urea Nitrogen 9mg/dL (7-20) Creatinine 0.8mg/dL (0.6-1.0) Estimated GFR (Cockcroft-Gault) 76.9 Glucose Level 234mg/dL (70-99) Calcium Level 8.6mg/dL (8.5-10.1) Triglycerides Level 453mg/dL (0-150) Cholesterol Level 344mg/dL (0-200) LDL Cholesterol, Calculated 223mg/dL (0-100) VLDL Cholesterol, Calculated 91mg/dL (0-40) HDL Cholesterol 30mg/dL (40-60) Cholesterol/HDL Ratio 11.5 Laboratory Tests Test 04/01/16 12:05 04/01/16 16:08 04/01/16 17:31 04/01/16 20:36 Glucose (Fingerstick) 238mg/dL (70-99) 191mg/dL (70-99) 236mg/dL (70-99) Troponin I Quantitative < 0.017ng/mL (0.000-0.055) Test 04/01/16 22:45 04/02/16 05:00 Troponin I Quantitative < 0.017ng/mL (0.000-0.055) White Blood Count 9.2x10^3/uL (4.0-11.0) Red Blood Count 4.42x10^6/uL (3.50-5.40) Hemoglobin 14.3g/dL (12.0-15.5) Hematocrit 42.9% (36.0-47.0) Mean Corpuscular Volume 97fL (79-100) Mean Corpuscular Hemoglobin 32pg (25-35) Mean Corpuscular Hemoglobin Concent 33g/dL (31-37) Red Cell Distribution Width 13.9% (11.5-14.5) Platelet Count 163x10^3/uL (140-400) Neutrophils (%) (Auto) 63% (31-73) Lymphocytes (%) (Auto) 28% (24-48) Monocytes (%) (Auto) 7% (0-9) Eosinophils (%) (Auto) 2% (0-3) Basophils (%) (Auto) 1% (0-3) Neutrophils # (Auto) 5.7x10^3uL (1.8-7.7) Lymphocytes # (Auto) 2.6x10^3/uL (1.0-4.8) Monocytes # (Auto) 0.6x10^3/uL (0.0-1.1) Eosinophils # (Auto) 0.2x10^3/uL (0.0-0.7) Basophils # (Auto) 0.1x10^3/uL (0.0-0.2) Sodium Level 138mmol/L (136-145) Potassium Level 3.9mmol/L (3.5-5.1) Chloride Level 102mmol/L (98-107) Carbon Dioxide Level 26mmol/L (21-32) Anion Gap 10 (6-14) Blood Urea Nitrogen 9mg/dL (7-20) Creatinine 0.8mg/dL (0.6-1.0) Estimated GFR (Cockcroft-Gault) 76.9 Glucose Level 234mg/dL (70-99) Calcium Level 8.6mg/dL (8.5-10.1) Triglycerides Level 453mg/dL (0-150) Cholesterol Level 344mg/dL (0-200) LDL Cholesterol, Calculated 223mg/dL (0-100) VLDL Cholesterol, Calculated 91mg/dL (0-40) HDL Cholesterol 30mg/dL (40-60) Cholesterol/HDL Ratio 11.5 Medications Current Medications Adenosine (Adenocard) 6 mg STK-MED ONCE IV ; Start 04/01/16 at 08:54; Stop at 08:55; Status DC Diltiazem HCl 25 mg 25 mg STK-MED ONCE .ROUTE ; Start 04/01/16 at 08:54; Stop 04/01/16 at 08:55; Status DC Sodium Chloride (Iv Sodium Chloride 0.9% 1000ml Bag) 1,000 ml @ 1,000 mls/hr Q1H IV Last administered on 04/01/16 09:00; Start 04/01/16 at 09:30; Stop at 10:29; Status DC Adenosine (Adenocard) 6 mg 1X ONCE IV Last administered on 04/01/16 09:01; Start 04/01/16 at 10:00; Stop 04/01/16 at 10:01; Status DC Insulin Aspart (Novolog) 0-9 UNITS TIDWMEALS SQ Last administered on 04/02/16 09:00; Start 04/01/16 at 17:00 Dextrose 12.5 gm PRN Q15MIN PRN IV SEE COMMENTS; Start 04/01/16 at 13:00 Acetaminophen (Tylenol) 650 mg PRN Q6HRS PRN PO MILD PAIN / TEMP; Start at 13:00 Ondansetron HCl (Zofran) 4 mg PRN Q6HRS PRN IV NAUSEA/VOMITING; Start 04/01/16 at 13:00 Enoxaparin Sodium (Lovenox 60mg Syringe) 60 mg Q12HR SQ ; Start 04/01/16 at 14:00 Metoprolol Tartrate (Lopressor) 25 mg BID PO Last administered on 04/01/16 15: 33; Start 04/01/16 at 14:30; Stop 04/02/16 at 08:42; Status DC Levothyroxine Sodium (Synthroid) 200 mcg DAILY07 PO Last administered on 09:05; Start 04/01/16 at 15:00 Metoprolol Tartrate (Lopressor) 12.5 mg BID PO Last administered on 04/02/16 09 :04; Start 04/02/16 at 09:00 Vitals/I & O Vital Sign - Last 24 Hours 04/01/16 04/01/16 04/01/16 04/01/16 10:15 10:30 11:00 11:25 Temp 97.6 97.6 Pulse 100 102 98 97 Resp 9 24 18 B/P 121/59 122/63 125/82 112/80 Pulse Ox 94 93 97 95 O2 Delivery Nasal Cannula Nasal Cannula Nasal Cannula Room Air O2 Flow Rate 2 2 2 04/01/16 04/01/16 04/01/16 04/01/16 11:30 15:00 15:33 19:47 Temp 97.9 97.9 97.9 97.9 Pulse 89 97 80 Resp 18 20 B/P 116/73 112/80 98/58 Pulse Ox 97 95 O2 Delivery Room Air Room Air Room Air 04/01/16 04/01/16 04/01/16 04/02/16 21:45 21:45 23:11 03:13 Temp 97.8 98.1 97.8 98.1 Pulse 79 79 76 88 Resp 19 18 18 B/P 119/64 85/51 97/70 Pulse Ox 91 93 O2 Delivery Room Air Room Air Room Air 04/02/16 04/02/16 07:00 09:04 Temp 97.5 97.5 Pulse 94 94 Resp 17 B/P 126/78 126/78 Pulse Ox 93 O2 Delivery Room Air Intake and Output 04/01/16 04/01/16 04/02/16 15:00 23:00 07:00 Intake Total 1000 ml 750 ml 800 ml Balance 1000 ml 750 ml 800 ml DELMIS MONSALVE MD Apr 02, 2016 10:03
[2016-04-02] MEDS ORDERED: AMOXICILLIN/K CLAV 875/125MG TABLET. PO SCH (10:30)
[2016-04-02 11:00] VITALS: BP 128/77
[2016-04-02] MEDS ORDERED: AMOX1TAB61 PO (14:50)
[2016-04-02] MEDS ORDERED: LEVO200T PO (14:50)
[2016-04-02] MEDS ORDERED: METO25TA9 PO (14:50)
[2016-04-02] MEDS ORDERED: METF500T4 PO (14:50)
[2016-04-02] MEDS ORDERED: GLYB5TAB3 PO (14:50)
--- NOTE | 2016-04-02 14:53 | PDOC3 ---
Discharge Summary Visit Information Date of Admission: Apr 01, 2016 Date of Discharge: Apr 02, 2016 Admitting Diagnosis Comment: 1. SVT converted to sinus tachycardia post adenosine 2. hypothyroidism - NEW 3. morbid obesity with BMI 54 4. h/o migraines 5. hyperglycemia, likely DM2 - NEW dx 6. Tonsillopharyngitis Final Diagnosis Problems Medical Problems: (1) Diabetes mellitus out of control Status: Acute (2) SVT (supraventricular tachycardia) Status: Acute Brief Hospital Course Allergies Allergies Coded Allergies Type Severity Reaction Last Updated Verified No Known Drug Allergies 01/10/15 No Vital Signs Vital Signs Date Time Temp Pulse Resp B/P Pulse Ox O2 Delivery O2 Flow Rate FiO2 04/02/16 11:00 97.9 89 18 128/77 94 Room Air 97.9 04/01/16 11:00 2 Lab Results Laboratory Tests Test 04/01/16 08:50 04/01/16 09:43 04/01/16 12:05 04/01/16 16:08 White Blood Count 13.1x10^3/uL (4.0-11.0) Red Blood Count 4.87x10^6/uL (3.50-5.40) Hemoglobin 15.8g/dL (12.0-15.5) Hematocrit 48.0% (36.0-47.0) Mean Corpuscular Volume 99fL (79-100) Mean Corpuscular Hemoglobin 33pg (25-35) Mean Corpuscular Hemoglobin Concent 33g/dL (31-37) Red Cell Distribution Width 13.5% (11.5-14.5) Platelet Count 207x10^3/uL (140-400) Neutrophils (%) (Auto) 60% (31-73) Lymphocytes (%) (Auto) 31% (24-48) Monocytes (%) (Auto) 7% (0-9) Eosinophils (%) (Auto) 1% (0-3) Basophils (%) (Auto) 1% (0-3) Neutrophils # (Auto) 7.9x10^3uL (1.8-7.7) Lymphocytes # (Auto) 4.1x10^3/uL (1.0-4.8) Monocytes # (Auto) 0.9x10^3/uL (0.0-1.1) Eosinophils # (Auto) 0.2x10^3/uL (0.0-0.7) Basophils # (Auto) 0.1x10^3/uL (0.0-0.2) Prothrombin Time 12.6SEC (11.7-14.0) Prothromb Time International Ratio 1.0 (0.8-1.1) Hemoglobin A1c 8.5% (4.8-5.6) Magnesium Level 1.9mg/dL (1.8-2.4) Creatine Kinase 84U/L (26-192) Creatine Kinase MB (Mass) < 0.5ng/mL (0.0-3.6) Creatine Kinase MB Relative Index % (0-4) Troponin I Quantitative < 0.017ng/mL (0.000-0.055) < 0.017ng/mL (0.000-0.055) YS-Yvy-R-Type Natriuretic Peptide 35pg/mL (0-124) Thyroid Stimulating Hormone (TSH) 113.955uIU/mL (0.358-3.74) Free Thyroxine 0.48ng/dL (0.76-1.46) Sodium Level 136mmol/L (136-145) Potassium Level 4.0mmol/L (3.5-5.1) Chloride Level 103mmol/L (98-107) Carbon Dioxide Level 22mmol/L (21-32) Anion Gap 11 (6-14) Blood Urea Nitrogen 9mg/dL (7-20) Creatinine 1.0mg/dL (0.6-1.0) Estimated GFR (Cockcroft-Gault) 59.4 Glucose Level 338mg/dL (70-99) Calcium Level 8.2mg/dL (8.5-10.1) Total Bilirubin 0.4mg/dL (0.2-1.0) Direct Bilirubin 0.1mg/dL (0.0-0.2) Aspartate Amino Transf (AST/SGOT) 68U/L (15-37) Alanine Aminotransferase (ALT/SGPT) 71U/L (14-59) Alkaline Phosphatase 72U/L (46-116) Total Protein 7.5g/dL (6.4-8.2) Albumin 3.2g/dL (3.4-5.0) Glucose (Fingerstick) 238mg/dL (70-99) Test 2/2/17 17:31 04/01/16 20:36 04/01/16 22:45 04/02/16 05:00 Glucose (Fingerstick) 191mg/dL (70-99) 236mg/dL (70-99) Troponin I Quantitative < 0.017ng/mL (0.000-0.055) White Blood Count 9.2x10^3/uL (4.0-11.0) Red Blood Count 4.42x10^6/uL (3.50-5.40) Hemoglobin 14.3g/dL (12.0-15.5) Hematocrit 42.9% (36.0-47.0) Mean Corpuscular Volume 97fL (79-100) Mean Corpuscular Hemoglobin 32pg (25-35) Mean Corpuscular Hemoglobin Concent 33g/dL (31-37) Red Cell Distribution Width 13.9% (11.5-14.5) Platelet Count 163x10^3/uL (140-400) Neutrophils (%) (Auto) 63% (31-73) Lymphocytes (%) (Auto) 28% (24-48) Monocytes (%) (Auto) 7% (0-9) Eosinophils (%) (Auto) 2% (0-3) Basophils (%) (Auto) 1% (0-3) Neutrophils # (Auto) 5.7x10^3uL (1.8-7.7) Lymphocytes # (Auto) 2.6x10^3/uL (1.0-4.8) Monocytes # (Auto) 0.6x10^3/uL (0.0-1.1) Eosinophils # (Auto) 0.2x10^3/uL (0.0-0.7) Basophils # (Auto) 0.1x10^3/uL (0.0-0.2) Sodium Level 138mmol/L (136-145) Potassium Level 3.9mmol/L (3.5-5.1) Chloride Level 102mmol/L (98-107) Carbon Dioxide Level 26mmol/L (21-32) Anion Gap 10 (6-14) Blood Urea Nitrogen 9mg/dL (7-20) Creatinine 0.8mg/dL (0.6-1.0) Estimated GFR (Cockcroft-Gault) 76.9 Glucose Level 234mg/dL (70-99) Calcium Level 8.6mg/dL (8.5-10.1) Triglycerides Level 453mg/dL (0-150) Cholesterol Level 344mg/dL (0-200) LDL Cholesterol, Calculated 223mg/dL (0-100) VLDL Cholesterol, Calculated 91mg/dL (0-40) HDL Cholesterol 30mg/dL (40-60) Cholesterol/HDL Ratio 11.5 Test 04/02/16 12:16 Glucose (Fingerstick) 210mg/dL (70-99) Laboratory Tests Test 04/01/16 16:08 04/01/16 17:31 04/01/16 20:36 04/01/16 22:45 Troponin I Quantitative < 0.017ng/mL (0.000-0.055) < 0.017ng/mL (0.000-0.055) Glucose (Fingerstick) 191mg/dL (70-99) 236mg/dL (70-99) Test 04/02/16 05:00 04/02/16 12:16 White Blood Count 9.2x10^3/uL (4.0-11.0) Red Blood Count 4.42x10^6/uL (3.50-5.40) Hemoglobin 14.3g/dL (12.0-15.5) Hematocrit 42.9% (36.0-47.0) Mean Corpuscular Volume 97fL (79-100) Mean Corpuscular Hemoglobin 32pg (25-35) Mean Corpuscular Hemoglobin Concent 33g/dL (31-37) Red Cell Distribution Width 13.9% (11.5-14.5) Platelet Count 163x10^3/uL (140-400) Neutrophils (%) (Auto) 63% (31-73) Lymphocytes (%) (Auto) 28% (24-48) Monocytes (%) (Auto) 7% (0-9) Eosinophils (%) (Auto) 2% (0-3) Basophils (%) (Auto) 1% (0-3) Neutrophils # (Auto) 5.7x10^3uL (1.8-7.7) Lymphocytes # (Auto) 2.6x10^3/uL (1.0-4.8) Monocytes # (Auto) 0.6x10^3/uL (0.0-1.1) Eosinophils # (Auto) 0.2x10^3/uL (0.0-0.7) Basophils # (Auto) 0.1x10^3/uL (0.0-0.2) Sodium Level 138mmol/L (136-145) Potassium Level 3.9mmol/L (3.5-5.1) Chloride Level 102mmol/L (98-107) Carbon Dioxide Level 26mmol/L (21-32) Anion Gap 10 (6-14) Blood Urea Nitrogen 9mg/dL (7-20) Creatinine 0.8mg/dL (0.6-1.0) Estimated GFR (Cockcroft-Gault) 76.9 Glucose Level 234mg/dL (70-99) Calcium Level 8.6mg/dL (8.5-10.1) Triglycerides Level 453mg/dL (0-150) Cholesterol Level 344mg/dL (0-200) LDL Cholesterol, Calculated 223mg/dL (0-100) VLDL Cholesterol, Calculated 91mg/dL (0-40) HDL Cholesterol 30mg/dL (40-60) Cholesterol/HDL Ratio 11.5 Glucose (Fingerstick) 210mg/dL (70-99) Brief Hospital Course Ms. 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 Converetd after adenosine. TSH checked, was > 100. Started on synthroid. Then also found to be DM with hgba1c 8.2, started on OHA. Metoprolol 12.5 BID started by cards. Advised rpt thyroid 6-8 weeks. DM counselling done. Needs PCP for DM and thyroid ff up. Lipids high, bec of DM, advised to control DM first hence statin not started. COnsults: cards proc none Time 2 visits today 40 mins cumulative counselling Discharge Information Condition at Discharge: Improved, Stable Disposition/Orders: D/C to Home DELMIS MONSALVE MD Apr 02, 2016 14:53
[2016-04-02] MEDS ORDERED: GLYBURIDE 5 MG TABLET PO SCH (17:00)
[2016-04-02] MEDS ORDERED: METFORMIN 500 MG TABLET. PO SCH (17:00)
== END 2016-04-02 15:36 | disposition home or self-care (01) | DRG 309 ==
LOC: ER 08:48 → 2 NORTH 10:00
PROVIDERS: ADMIT Internal Medicine; ATTEND Internal Medicine
DX: I47.1 Supraventricular tachycardia (principal); Z68.43 Body mass index [BMI] 50.0-59.9, adult; E03.9 Hypothyroidism, unspecified; G43.909 Migraine, unspecified, not intractable, without status migrainosus; J02.9 Acute pharyngitis, unspecified; I95.9 Hypotension, unspecified; R61 Generalized hyperhidrosis; E66.01 Morbid (severe) obesity due to excess calories; G25.0 Essential tremor; E11.65 Type 2 diabetes mellitus with hyperglycemia; N92.6 Irregular menstruation, unspecified; Z82.49 Family history of ischemic heart disease and other diseases of the circulatory system; Z90.49 Acquired absence of other specified parts of digestive tract; Z98.890 Other specified postprocedural states; Z79.899 Other long term (current) drug therapy
CPT/HCPCS: 36415; 71010; 80048; 80061; 80076; 82553; 82947; 83036; 83735; 83880; 84439; 84443; 84484; 85027; 85610; 93005; 93306; 96361; 96374; J0153; J1815; J7030; 99285-25

== ENCOUNTER 2016-12-11 02:16 | Emergency (ER) | payer BC ==
[~2016-12-11] VITALS: Ht 172.7 cm; Wt 145.1 kg
[~2016-12-11 02:16] MED LIST: AMOX1TAB61 PO; GLYB5TAB3 PO; LEVO200T PO; METF500T4 PO; METO-239 PO
[2016-12-11 02:34] VITALS: BP 147/76
[2016-12-11] MEDS ORDERED: PEG4000S8 PO (03:39)
--- NOTE | 2016-12-11 03:39 | PHYS DOC ---
Past Medical History Past Medical History: Diabetes-Type II, Hypothyroid, Migraines, Other Additional Past Medical Histor: SVT Past Surgical History: Appendectomy, Additional Past Surgical Histo: X 4 Alcohol Use: Occasionally Drug Use: None Adult General Chief Complaint Chief Complaint: CONSTIPATION HPI HPI Patient is a 46 year old female who presents with complaints of constipation. Patient states that her symptoms have been present over the past 5 days. Patient states that she is having difficulty moving her bowels during that time. Patient states that she tried milk of magnesia for symptoms with no relief. Patient states she tried Dulcolax suppositories this evening and states that this did not relieve her symptoms. Patient states that she started to feel nauseous and having decreased appetite. Patient states that she is feeling a significant amount of pressure in her rectum and feels that she may have a fecal impaction. Patient denies history of similar symptoms. Patient states that she has been trying to stay hydrated and does not feel that she has been dehydrated. Review of Systems Review of Systems Constitutional: Denies fever or chills [] Eyes: Denies change in visual acuity, redness, or eye pain [] HENT: Denies nasal congestion or sore throat [] Respiratory: Denies cough or shortness of breath [] Cardiovascular: Denies chest pain or edema[] GI: Constipation, nausea, denies vomiting [] : Denies dysuria or hematuria [] Musculoskeletal: Denies back pain or joint pain [] Integument: Denies rash or skin lesions [] Neurologic: Denies headache, focal weakness or sensory changes [] Allergies Allergies Allergies Coded Allergies Type Severity Reaction Last Updated Verified No Known Drug Allergies 01/10/15 No Physical Exam Physical Exam Constitutional: Alert, afebrile, appears in mild to moderate discomfort. [] HENT: Normocephalic, atraumatic, bilateral external ears normal, oropharynx moist, no oral exudates, nose normal. [] Eyes: PERRLA, EOMI, conjunctiva normal, no discharge. [] Neck: Normal range of motion, no tenderness, supple, no stridor. [] Cardiovascular:Heart rate regular rhythm, no murmur [] Lungs & Thorax: Bilateral breath sounds clear to auscultation [] Abdomen: Bowel sounds normal, soft, no tenderness, no masses, no pulsatile masses. Rectal: Normal external exam, palpable fecal impaction in mid to lower rectum, no gross blood present[] Skin: Warm, dry, no erythema, no rash. [] Back: No tenderness, no CVA tenderness. [] Extremities: No tenderness, no cyanosis, no clubbing, ROM intact, no edema. [] Neurologic: Alert and oriented X 3, normal motor function, normal sensory function, no focal deficits noted. [] Current Patient Data Vital Signs Vital Signs Date Time Temp Pulse Resp B/P (MAP) Pulse Ox O2 Delivery O2 Flow Rate FiO2 12/11/16 02:34 97.7 96 20 147/76 (99) 93 Room Air 97.7 Lab Values None performed EKG EKG Not performed[] Radiology/Procedures Radiology/Procedures Not performed[] Course & Med Decision Making Course & Med Decision Making Pertinent Labs and Imaging studies reviewed. (See chart for details) Patient underwent manual disimpaction with removal of small amount of stool. After her disimpaction, the patient was able to have a bowel movement in the emergency department and states that she feels better. Patient states that she would like to go home at this time. The patient was recommended to use wheezing citrate for any continued difficulty with constipation. Patient also given a prescription for GoLYTELY in the event that magnesium citrate does not help with her symptoms. I recommended close follow-up with the patient's primary doctor in the next 3-5 days for reevaluation and advised return to emergency department for any worsening symptoms. Patient voiced understanding and in agreement with treatment plan.[] Dragon Disclaimer Dragon Disclaimer This electronic medical record was generated, in whole or in part, using a voice recognition dictation system. Departure Departure Impression: Primary Impression: Fecal impaction in rectum Additional Impression: Constipation Disposition: 01 HOME, SELF-CARE Condition: IMPROVED Referrals: NO PCP (PCP) Patient Instructions: Constipation, Adult, Fecal Impaction Additional Instructions: Follow-up with your primary doctor in 3-5 days for reevaluation. It is recommended that you try magnesium citrate as needed for constipation. If this does not seem to help, he has been given a prescription for GoLYTELY to use as needed. Return to the emergency department for any worsening or severe symptoms. Scripts Peg 3350/Na Sulf,Bicarb,Cl/Kcl (GOLYTELY SOLUTION) 4,000 Ml Soln.recon 2000 ML PO 1X Y for CONSTIPATION, #1 BOT May take additional 2,000 ml in 1 hour from first dose if no relief from constipation. Prov: LUBNA ROJAS MD 12/11/16 Problem Qualifiers Additional Impression: Constipation Constipation type: unspecified constipation type Qualified Codes: K59.00 - Constipation, unspecified LUBNA ROJAS MD Dec 11, 2016 03:39
== END 2016-12-11 03:45 | disposition home or self-care (01) ==
LOC: ER 02:16
DX: K59.00 Constipation, unspecified (principal); E11.9 Type 2 diabetes mellitus without complications; E03.9 Hypothyroidism, unspecified; G43.909 Migraine, unspecified, not intractable, without status migrainosus; Z90.49 Acquired absence of other specified parts of digestive tract
CPT/HCPCS: 99284

== ENCOUNTER → 2020-03-03 | Outpatient (CLI) | payer BC, OTHER ==
[~2020-03-03] MED LIST changes: +METF500T16 PO; -METF500T4 PO; +PEG4000S8 PO
--- NOTE | 2020-03-03 15:18 | RAD ---
EXAM: Bilateral screening mammogram. HISTORY: 50-year-old female presents for screening mammography. TECHNIQUE: Full-field digital craniocaudal and mediolateral oblique views of both breasts are obtaine d for evaluation. Computer aided detection was applied. COMPARISON: There is no prior study within 10 years for comparison. This exam serves as a new baselin e mammogram. BREAST PARENCHYMAL DENSITY: Level 2. FINDINGS: There are multiple scattered areas of nodularity throughout both breasts, the most conspicu ous of which are seen within the 10:00 position of the right breast at mid depth, 9:00 position of th e right breast at anterior depth, 3:00 position of the left breast at mid depth and 9:00 position of the left breast at anterior depth. There is focal asymmetry with possible associated distortion withi n the anterior 4:00 position of the right breast. There are are additional scattered areas of nodular ity, the multiplicity of which favors a benign cystic or fibrocystic etiology. No suspicious calcific ation is seen. IMPRESSION: BI-RADS Category 0: Incomplete. Additional imaging needed. RECOMMENDATION: Further evaluation with a full field true lateral view and spot compression mediolate ral oblique view of the right breast to assess asymmetry with possible associated distortion within t he anterior 4:00 position is recommended. Sonographic imaging of both breasts is recommended to asses s areas of nodularity described above. The multiplicity of these lesions favors a benign cystic or fi brocystic etiology. However, given the absence of a prior study confirm stability, sonographic imagin g is indicated. If your mammogram demonstrates that you have dense breast tissue, which could hide abnormalities, and if you have other risk factors for breast cancer that have been identified, you might benefit from s upplemental screening tests that may be suggested by your ordering physician. Dense breast tissue, i n and of itself, is a relatively common condition. This information is not provided to cause undue c oncern, but rather to raise your awareness and to promote discussion with your physician regarding th e presence of other risk factors, in addition to dense breast tissue. A report of your mammography re sults will be sent to you and your physician. You should contact your physician if you have any ques tions or concerns regarding this report. Mammography is a sensitive method for finding small breast cancers, but it does not detect them all a nd is not a substitute for careful clinical examination. A negative mammogram does not negate a clin ically suspicious finding and should not result in delay in biopsying a clinically suspicious abnorma lity. PQRS compliance statement - Patient information was entered into a reminder system with a target due date for the next mammogram. "Our facility is accredited by the [employer] Mammography [employer]." Electronically signed by: Patricia Casanova MD (03/03/2020 3:16 PM) [id number]
== END ==
LOC: MAMMO 13:18
PROVIDERS: ATTEND Family Medicine
DX: Z12.31 Encounter for screening mammogram for malignant neoplasm of breast (principal); N64.89 Other specified disorders of breast
CPT/HCPCS: 77063; 77067

== ENCOUNTER → 2020-03-20 | Outpatient (CLI) | payer OTHER ==
--- NOTE | 2020-03-20 17:12 | RAD ---
Examination: 1. Right digital diagnostic mammogram. 2. Limited bilateral breast ultrasound. INDICATION: 50-year-old woman recalled from mammographic screening for nodularity in both breasts. A focal asymmetry in the anterior right 4:00 position was also observed and recommended for additional mammographic views. COMPARISON: Bilateral mammogram of 03/03/2020. TECHNIQUE: Spot compression MLO view and a full field right ML view were obtained and reviewed with c omputer-aided detection. Targeted ultrasound of the medial right breast anterior third was performed along with ultrasound of the left breast in the 3:00 position mid depth and 9:00 position anterior de pth. FINDINGS: Additional spot compression views of the right breast show heterogeneously dense breast parenchyma wi th a changing configuration of the questioned asymmetry in a pattern suggesting benign overlap of den se fibroglandular tissue. Targeted ultrasound of the medial right breast showed no suspicious sonogra phic findings are definite sonographic correlate to the area of mammographic interest. No right axill odalis adenopathy. Ultrasound of the left breast identified at 3:00 position, a ridge of dense fibroglandular tissue wit h no dominant mass or definite sonographic correlate to the nodularity identified on screening. Simil amarilys, ultrasound of the lateral left breast revealed dense fibroglandular tissue with no definite son ographic correlate or abnormality. IMPRESSION: Benign findings in the left breast and probably benign findings in the right breast of an asymmetry i n the anterior medial right breast that likely reflects overlap of fibroglandular tissue. BI-RADS Category 3 Probably benign findings. Recommend 6 month follow-up right diagnostic mammogram and possible targeted ultrasound (the left alia ast may return to routine annual screening). Electronically signed by: Christiano Casas MD (03/20/2020 5:10 PM) [id number]
== END ==
LOC: MAMMO 09:25
PROVIDERS: ATTEND Family Medicine
DX: R92.8 Other abnormal and inconclusive findings on diagnostic imaging of breast (principal)
CPT/HCPCS: 77065; 76641-50

== ENCOUNTER → 2020-12-22 | Outpatient (CLI) | payer OTHER ==
--- NOTE | 2020-12-22 09:51 | RAD ---
EXAM: Right breast diagnostic mammogram with tomosynthesis; right breast sonogram. HISTORY: 50-year-old female presents for short-term follow-up evaluation of findings within the right breast demonstrated on a prior screening and diagnostic mammogram. TECHNIQUE: Full-field digital craniocaudal and mediolateral oblique 2D and 3D tomosynthesis images of the right breast are obtained for evaluation. Computer aided detection was applied. Sonographic imag ing of the right breast targeted to the 4:00 position was also performed. COMPARISON: 03/20/2020, 03/03/2020 BREAST PARENCHYMAL DENSITY: Level B - Scattered fibroglandular densities. FINDINGS: There is no new suspicious mass, microcalcification or region of architectural distortion. There has been slight decreased conspicuity of nodular asymmetry at the anterior 4:00 position of the right breast. There are additional areas of asymmetry and nodularity which are stable in appearance. There are benign calcifications. There is no convincing architectural distortion. Sonographic imaging of the right breast targeted 4:00 position demonstrates a 3.5 mm circumscribed hy poechoic lesion with internal echoes at the 4:00 position 2 cm from the nipple, the appearance of whi ch favors a benign cyst with internal debris. No suspicious lesion is seen. IMPRESSION: 1. No new suspicious mammographic finding. 2. Tiny cyst with suspected internal debris within the 4:00 position of the right breast 2 cm from th e nipple. No new suspicious sonographic finding. 3. BI-RADS Category 2: Benign finding(s). RECOMMENDATION: Bilateral screening mammography in 3 months is recommended to correspond with the pre viously established bilateral screening mammography interval. If your mammogram demonstrates that you have dense breast tissue, which could hide abnormalities, and if you have other risk factors for breast cancer that have been identified, you might benefit from s upplemental screening tests that may be suggested by your ordering physician. Dense breast tissue, i n and of itself, is a relatively common condition. This information is not provided to cause undue c oncern, but rather to raise your awareness and to promote discussion with your physician regarding th e presence of other risk factors, in addition to dense breast tissue. A report of your mammography re sults will be sent to you and your physician. You should contact your physician if you have any ques tions or concerns regarding this report. Mammography is a sensitive method for finding small breast cancers, but it does not detect them all a nd is not a substitute for careful clinical examination. A negative mammogram does not negate a clin ically suspicious finding and should not result in delay in biopsying a clinically suspicious abnorma lity. PQRS compliance statement - Patient information was entered into a reminder system with a target due date for the next mammogram. "Our facility is accredited by the [employer] Mammography [employer]." Electronically signed by: Patricia Casanova MD (12/22/2020 9:49 AM) [id number]
== END ==
LOC: MAMMO 09:02
PROVIDERS: ATTEND Family Medicine
DX: N63.14 Unspecified lump in the right breast, lower inner quadrant (principal); R92.1 Mammographic calcification found on diagnostic imaging of breast; N60.01 Solitary cyst of right breast; R92.8 Other abnormal and inconclusive findings on diagnostic imaging of breast
CPT/HCPCS: 76641; 77065; G0279; 77061